=== PATIENT | male | born 1995 | race American Indian/Alaskan Native ===

== ENCOUNTER 2020-06-01 23:28 | Emergency (ER) | payer SELFPAY ==
[2020-06-01 23:55] VITALS: BP 115/73
[2020-06-02 00:18] LABS: Basophils % (Auto) 0.2 % (0.0-1.8); Eosinophils % (Auto) 0.3 % (0.0-4.3); Hematocrit 51.6 % (35.5-45.6); Hemoglobin 17.1 gm/dl (11.8-15.2); Lymphocytes # (Auto) 2.3 K/mm3 (1.2-5.4); Lymphocytes % (Auto) 21.6 % (13.4-35.0); Mean Corpuscular HGB Conc 33 % (32-34); Mean Corpuscular Volume 87 fl (84-94); Monocytes % (Auto) 9.5 % (0.0-7.3); Platelet Count 353 K/mm3 (140-440); Red Blood Count 5.93 M/mm3 (3.65-5.03); Red Cell Distribution Width 13.7 % (13.2-15.2)
[2020-06-02 00:35] LABS: Alanine Aminotransferase 20 units/L (7-56); Albumin 5.3 g/dL (3.9-5); BUN/Creatinine Ratio 18; Blood Urea Nitrogen 18 mg/dL (9-20); Calcium 10.1 mg/dL (8.4-10.2); Hemolysis Index 12
--- NOTE | 2020-06-02 00:40 | XRay Report ---
CHEST 1 VIEW 12:32 AM INDICATION / CLINICAL INFORMATION: Chest Pain. COMPARISON: None available. FINDINGS: SUPPORT DEVICES: None. HEART / MEDIASTINUM: The heart size and pulmonary vasculature are normal. The aorta is normal in lucas richard. LUNGS / PLEURA: No significant pulmonary or pleural abnormality. No pneumothorax. ADDITIONAL FINDINGS: No significant additional findings. IMPRESSION: No acute findings. Signer Name: Kervin Rai MD Signed: 06/02/2020 12:36 AM Workstation Name: [id number]
[2020-06-02 03:06] LABS: Bilirubin,Urine NEG (Negative); Blood,Urine SM (Negative); Color,Urine Amber (Yellow); Mucus,Urine 3+ /HPF
[2020-06-02] MEDS ORDERED: FAMOTIDINE 20 MG/2 ML INJ IV ONE (04:35)
[2020-06-02] MEDS ORDERED: AZITHROMYCIN 250 MG TAB PO ONE (04:35)
[2020-06-02] MEDS ORDERED: cefTRIAXone/NS 1 GM/50 ML 1 GM/50 ML BAG IV ONE (04:35)
[2020-06-02] MEDS ORDERED: KETOROLAC 30 MG/1 ML INJ IV ONE (04:35)
[2020-06-02] MEDS ORDERED: SODIUM CHLORIDE 0.9% 1000 ML 1,000 ML IV ONE (04:35)
[2020-06-02] MEDS ORDERED: ONDANSETRON 4 MG/2 ML INJ IV ONE (04:35)
--- NOTE | 2020-06-02 05:57 | Emergency Department Report ---
ED General Adult HPI - General Chief complaint: Chest Pain Stated complaint: POSS ALCOHOL POISONING Source: patient Mode of arrival: Ambulatory Limitations: No Limitations - History of Present Illness Initial comments: Patient is a 24-year-old -[place] male with no past medical history who presents to the ED with complaint of acute onset persistent diffuse body aches and pains, intractable nausea and vomiting, pleuritic chest pain, dysuria, low back pain and lack of appetite for the last 2 days. Patient states that about 4 days ago he drank a lot of alcohol but the symptoms did not start until the next day. Patient states that he initially thought that the symptoms were due to alcohol hangover effects but the symptoms got worse such that in the last 12 hours he has not been able to keep anything down or eat anything because of intractable nausea and vomiting. Patient denies dizziness, syncope, shortness of breath, fever, chills, cough, sore throat, headache, palpitations, hematuria, testicular pain, diarrhea, change in vision or hematemesis and hematochezia. MD Complaint: nausea, vomiting, chest pain, diffuse body aches; dysuria -: Sudden, days(s) (2) Location: chest, abdomen Radiation: non-radiation Severity scale (0 -10): 7 Quality: aching, sharp Consistency: constant Improves with: none Worsens with: none Associated Symptoms: denies other symptoms, chest pain (Pleuritic), headaches, loss of appetite, malaise, nausea/vomiting. denies: confusion, cough, diaphoresis, fever/chills, rash, seizure, shortness of breath, syncope, weakness, other Treatments Prior to Arrival: none - Related Data Previous Rx's Medication Instructions Recorded Last Taken Type Doxycycline Hyclate 100 mg PO Q12H #20 tablet. 06/02/20 Unknown Rx Famotidine [Pepcid] 20 mg PO Q12H #30 tablet 06/02/20 Unknown Rx Ibuprofen [Motrin] 600 mg PO Q8H PRN #24 tablet 06/02/20 Unknown Rx Ondansetron [Zofran Odt] 4 mg PO Q6HR PRN #20 tab.rapdis 06/02/20 Unknown Rx cephALEXin [Keflex] 500 mg PO Q8HR #21 cap 06/02/20 Unknown Rx Allergies Allergy/AdvReac Type Severity Reaction Status Date / Time No Known Allergies Allergy Verified 06/01/20 23:48 ED Review of Systems ROS: Stated complaint: POSS ALCOHOL POISONING Other details as noted in HPI Constitutional: malaise, weakness. denies: chills, fever Eyes: denies: eye pain, eye discharge, vision change ENT: denies: ear pain, throat pain Respiratory: denies: cough, shortness of breath, wheezing Cardiovascular: chest pain (Pleuritic). denies: palpitations Endocrine: no symptoms reported Gastrointestinal: nausea, vomiting. denies: abdominal pain, diarrhea Genitourinary: urgency, dysuria, frequency. denies: hematuria, testicular pain, testicular mass Musculoskeletal: arthralgia, myalgia. denies: back pain, joint swelling Skin: denies: rash, lesions Neurological: headache. denies: weakness, paresthesias Psychiatric: denies: anxiety, depression Hematological/Lymphatic: denies: easy bleeding, easy bruising ED Past Medical Hx - Past Medical History Previous Medical History?: No - Surgical History Past Surgical History?: No - Social History Smoking Status: Never Smoker Substance Use Type: Alcohol, Marijuana - Medications Home Medications: Home Medications Medication Instructions Recorded Confirmed Last Taken Type Doxycycline Hyclate 100 mg PO Q12H #20 tablet. 06/02/20 Unknown Rx Famotidine [Pepcid] 20 mg PO Q12H #30 tablet 06/02/20 Unknown Rx Ibuprofen [Motrin] 600 mg PO Q8H PRN #24 tablet 06/02/20 Unknown Rx Ondansetron [Zofran Odt] 4 mg PO Q6HR PRN #20 tab.rapdis 06/02/20 Unknown Rx cephALEXin [Keflex] 500 mg PO Q8HR #21 cap 06/02/20 Unknown Rx ED Physical Exam - General Limitations: No Limitations General appearance: alert, in no apparent distress - Head Head exam: Present: atraumatic, normocephalic, normal inspection - Eye Eye exam: Present: normal appearance, PERRL, EOMI Pupils: Present: normal accommodation - ENT ENT exam: Present: normal exam, normal orophraynx, mucous membranes moist, TM's normal bilaterally, normal external ear exam - Neck Neck exam: Present: normal inspection, full ROM. Absent: tenderness - Respiratory Respiratory exam: Present: normal lung sounds bilaterally. Absent: respiratory distress, wheezes, rales, rhonchi, stridor, chest wall tenderness - Cardiovascular Cardiovascular Exam: Present: regular rate, normal rhythm, normal heart sounds. Absent: systolic murmur, diastolic murmur, rubs, gallop - GI/Abdominal GI/Abdominal exam: Present: soft, normal bowel sounds. Absent: distended, tenderness, guarding, hyperactive bowel sounds, hypoactive bowel sounds, mass - Extremities Exam Extremities exam: Present: normal inspection, full ROM, normal capillary refill - Back Exam Back exam: Present: normal inspection, full ROM. Absent: tenderness, CVA tenderness (R), muscle spasm, paraspinal tenderness, vertebral tenderness - Neurological Exam Neurological exam: Present: alert, oriented X3, CN II-XII intact, normal gait, reflexes normal - Psychiatric Psychiatric exam: Present: normal affect, normal mood - Skin Skin exam: Present: warm, dry, intact, normal color. Absent: rash ED Course Vital Signs 06/01/20 23:44 Temperature 99.1 F Pulse Rate 62 Respiratory 16 Rate Blood Pressure 115/73 O2 Sat by Pulse 96 Oximetry ED Medical Decision Making - Lab Data Result diagrams: 06/01/20 23:56 06/01/20 23:56 - Radiology Data Radiology results: report reviewed, image reviewed Findings [facility] [address] [place] [address] XRay Report Signed Patient: RAND LANDERS MR#: [id number] : 1995 Acct:[id number] Age/Sex: 24 / M ADM Date: 06/01/20 Loc: ED Attending Dr: Ordering Physician: ED MD ANGELA Date of Service: 06/01/20 Procedure(s): XR chest 1V ap Accession Number(s): [id number] cc: ED MD ANGELA Fluoro Time In Minutes: CHEST 1 VIEW 12:32 AM INDICATION / CLINICAL INFORMATION: Chest Pain. COMPARISON: None available. FINDINGS: SUPPORT DEVICES: None. HEART / MEDIASTINUM: The heart size and pulmonary vasculature are normal. The aorta is normal in caliber. LUNGS / PLEURA: No significant pulmonary or pleural abnormality. No pneumothorax. ADDITIONAL FINDINGS: No significant additional findings. IMPRESSION: No acute findings. Signer Name: Kervin Rai MD Signed: 06/02/2020 12:36 AM Workstation Name: [id number] Transcribed By: RT Dictated By: Kervin Rai MD Electronically Authenticated By: Kervin Rai MD Signed Date/Time: 06/02/2035 DD/ TD/TT: - Medical Decision Making This is a 24-year-old -[place] male with no past medical history who presents to the ED with complaint of acute onset persistent diffuse body aches and pains, intractable nausea and vomiting, pleuritic chest pain, dysuria, low back pain and lack of appetite for the last 2 days. Patient states that about 4 days ago he drank a lot of alcohol but the symptoms did not start until the next day. Patient states that he initially thought that the symptoms were due to alcohol hangover effects but the symptoms got worse such that in the last 12 hours he has not been able to keep anything down or eat anything because of intractable nausea and vomiting. In the ED, patient is alert and oriented x3 and is not in distress. Patient was treated initially in the ED for pain, for nausea and vomiting and also given normal saline 1 L IV fluids bolus, also treated with antacids. Lab test results were reviewed and are all nonactionable except for mild hyponatremia 135 mmol/L, mild hypokalemia of 3.4 mmol/L and mild hypochloremia of 93 mmol/L. Urinalysis showed significant urinary tract infection characterized by moderate leukocyte esterase and >101 WBCs with budding yeasts. Patient was empirically treated in the ED also for suspected u rinary tract infection versus STD given the fact that the patient had admitted to having unprotected sexual intercourse. Chlamydia and gonorrhea tests were also sent and are pending at the time of patient disposition. Chest x-ray shows no acute cardiopulmonary abnormalities or pneumonitis. On reevaluation, patient felt better, was able to keep anything down in the ED after being treated for nausea and vomiting. Patient was discharged home on antiemetics, antibiotics, antacids and pain medications. Patient was advised to drink plenty of fluids and take medications and follow-up with his primary care physician in 3 to 5 days for reevaluation. Patient was also advised to follow-up with the [facility] department for further STD testing including HIV. Patient was otherwise advised to return to the ED immediately if symptoms get worse. - Differential Diagnosis Dehydration; UTI; Pneumonia; Alcoholic gastritis; STD; Gastroenteritis Critical care attestation.: If time is entered above; I have spent that time in minutes in the direct care of this critically ill patient, excluding procedure time. ED Disposition Clinical Impression: Nausea and vomiting in adult patient, Viral gastroenteritis, Acute urinary tract infection, STD (sexually transmitted disease) GERD (gastroesophageal reflux disease) Qualifiers: Esophagitis presence: without esophagitis Qualified Code(s): K21.9 - Gastro- esophageal reflux disease without esophagitis Disposition: TO HOME OR SELFCARE Is pt being admited?: No Does the pt Need Aspirin: No Condition: Stable Instructions: Gastroenteritis (ED), Acute Nausea and Vomiting (ED), Urinary Tract Infection in Men (ED), Sexually Transmitted Diseases (ED) Additional Instructions: Take medications with food, drink plenty of fluids and follow-up with your primary care physician in 5 to 7 days for reevaluation. Consider follow-up also with a [facility] department for further STD testing including HIV. Consider alcohol abuse cessation. Return to the ED immediately if symptoms get worse. Prescriptions: Doxycycline Hyclate 100 mg PO Q12H #20 tablet. cephALEXin [Keflex] 500 mg PO Q8HR #21 cap Ibuprofen [Motrin] 600 mg PO Q8H PRN #24 tablet PRN Reason: Pain Famotidine [Pepcid] 20 mg PO Q12H #30 tablet Ondansetron [Zofran Odt] 4 mg PO Q6HR PRN #20 tab.rapdis PRN Reason: Nausea Referrals: [facility] [Provider Group] - 3-5 Days [facility] [Outside] - 3-5 Days Time of Disposition: 06:08 Print Language: UZBEK
== END 2020-06-02 07:46 | disposition home or self-care (01) ==
LOC: ED 23:28
DX: K21.9 Gastro-esophageal reflux disease without esophagitis (principal); A08.4 Viral intestinal infection, unspecified; N39.0 Urinary tract infection, site not specified; A64 Unspecified sexually transmitted disease; F12.10 Cannabis abuse, uncomplicated
CPT/HCPCS: 36415; 71045; 80053; 81001; 83690; 84484; 85025; 87591; 93005; 96365; 96375; 99284; J0696; J1885; J2405; J7030

== ENCOUNTER 2020-11-07 06:16 | Emergency (ER) | payer SELFPAY ==
[2020-11-07 06:39] VITALS: BP 129/86
[2020-11-07 08:03] LABS: Basophils % (Auto) 0.3 % (0.0-1.8); Eosinophils % (Auto) 0.5 % (0.0-4.3); Hematocrit 50.4 % (35.5-45.6); Hemoglobin 16.8 gm/dl (11.8-15.2); Lymphocytes % (Auto) 20.4 % (13.4-35.0); Mean Corpuscular HGB Conc 33 % (32-34); Mean Corpuscular Volume 86 fl (84-94); Monocytes # (Auto) 0.9 K/mm3 (0.0-0.8); Monocytes % (Auto) 8.8 % (0.0-7.3); Platelet Count 305 K/mm3 (140-440); Red Blood Count 5.85 M/mm3 (3.65-5.03); Red Cell Distribution Width 13.9 % (13.2-15.2)
[2020-11-07 08:17] LABS: Alanine Aminotransferase 28 units/L (7-56); BUN/Creatinine Ratio 15; Blood Urea Nitrogen 15 mg/dL (9-20); Calcium 10.4 mg/dL (8.4-10.2); Hemolysis Index 24
[2020-11-07] MEDS ORDERED: SODIUM CHLORIDE 0.9% 1000 ML 1,000 ML IV ONE (09:54)
[2020-11-07] MEDS ORDERED: ONDANSETRON 4 MG/2 ML INJ IV ONE (09:54)
[2020-11-07] MEDS ORDERED: ALUM-MAG HYDROXIDE-SIMETHICONE 200-200-20MG/5ML ORAL LIQD 30 ML PO ONE (09:54)
--- NOTE | 2020-11-07 11:12 | Emergency Department Report ---
<GUYJOSUE - Last Filed: 11/07/20 20:16> ED Abdominal Pain HPI - General Chief Complaint: Abdominal Pain Stated Complaint: CHEST PAIN Time Seen by Provider: 11/07/20 09:53 Source: patient Mode of arrival: Ambulatory Limitations: No Limitations - History of Present Illness Initial Comments: This is a 25-year-old male reports a history of vomiting x2 days patient states it was after he drank beer and mixed alcohol drink that was given to him by a friend. He also reports loose stools x2 days he last vomited this morning. Patient reports chest pain with vomiting he states that taking a shower relieves his chest pain and the chest pain is relieved by vomiting. he reports a similar history of vomiting but has not done any follow-up he denies any other past medical history. He denies cough flu like symptoms no body aches no chills MD Complaint: abdominal pain -: days(s) (2 days) Location: diffuse Migration to: no migration Severity scale (0 -10): 7 Quality: cramping Consistency: intermittent Improves With: vomiting Worsens With: eating Context: other (Symptoms started after ingesting alcohol 2 days ago) Associated Symptoms: nausea, vomiting, diarrhea. denies: fever, constipation, dysuria - Related Data Previous Rx's Medication Instructions Recorded Last Taken Type Doxycycline Hyclate 100 mg PO Q12H #20 tablet. 06/02/20 Unknown Rx Famotidine [Pepcid] 20 mg PO Q12H #30 tablet 06/02/20 Unknown Rx Ibuprofen [Motrin] 600 mg PO Q8H PRN #24 tablet 06/02/20 Unknown Rx Ondansetron [Zofran Odt] 4 mg PO Q6HR PRN #20 tab.rapdis 06/02/20 Unknown Rx cephALEXin [Keflex] 500 mg PO Q8HR #21 cap 06/02/20 Unknown Rx Ciprofloxacin HCl [Ciprofloxacin 500 mg PO Q12HR 7 Days #14 tab 11/07/20 Unknown Rx TAB] Esomeprazole Magnesium [NexIUM] 40 mg PO QDAY #20 capsule. 11/07/20 Unknown Rx Allergies Allergy/AdvReac Type Severity Reaction Status Date / Time No Known Allergies Allergy Verified 06/01/20 23:48 ED Review of Systems Comment: All other systems reviewed and negative Constitutional: denies: chills Eyes: denies: eye pain ENT: denies: ear pain, dental pain Cardiovascular: chest pain. denies: palpitations Endocrine: no symptoms reported Gastrointestinal: abdominal pain, nausea, vomiting, diarrhea. denies: constipation, hematemesis Genitourinary: denies: urgency, dysuria Musculoskeletal: denies: back pain Neurological: denies: headache, numbness, paresthesias Psychiatric: denies: anxiety, depression ED Past Medical Hx - Past Medical History Previous Medical History?: Yes Hx GERD: Yes - Surgical History Past Surgical History?: No - Social History Smoking Status: Never Smoker Substance Use Type: None - Medications Home Medications: Home Medications Medication Instructions Recorded Confirmed Last Taken Type Doxycycline Hyclate 100 mg PO Q12H #20 tablet. 06/02/20 Unknown Rx Famotidine [Pepcid] 20 mg PO Q12H #30 tablet 06/02/20 Unknown Rx Ibuprofen [Motrin] 600 mg PO Q8H PRN #24 tablet 06/02/20 Unknown Rx Ondansetron [Zofran Odt] 4 mg PO Q6HR PRN #20 tab.rapdis 06/02/20 Unknown Rx cephALEXin [Keflex] 500 mg PO Q8HR #21 cap 06/02/20 Unknown Rx Ciprofloxacin HCl [Ciprofloxacin 500 mg PO Q12HR 7 Days #14 tab 11/07/20 Unknown Rx TAB] Esomeprazole Magnesium [NexIUM] 40 mg PO QDAY #20 capsule. 11/07/20 Unknown Rx ED Physical Exam - General Limitations: No Limitations General appearance: alert, in no apparent distress - Head Head exam: Present: atraumatic - Eye Eye exam: Present: normal appearance - ENT ENT exam: Present: normal exam - Neck Neck exam: Present: normal inspection, full ROM - Respiratory Respiratory exam: Present: normal lung sounds bilaterally - Cardiovascular Cardiovascular Exam: Present: regular rate, normal heart sounds - GI/Abdominal GI/Abdominal exam: Present: soft, normal bowel sounds. Absent: distended, tenderness, guarding, rebound, rigid - Rectal Rectal exam: Absent: deferred - Extremities Exam Extremities exam: Present: normal inspection - Back Exam Back exam: Present: normal inspection - Neurological Exam Neurological exam: Present: alert, oriented X3 - Psychiatric Psychiatric exam: Present: normal affect - Skin Skin exam: Present: warm, dry, intact, normal color ED Course - Reevaluation(s) Reevaluation #1: 11/07/20 13:17 Patient doing well and no pain. He has not vomited while in the emergency department states he is doing well and ready to go home I discussed all findings with patient he verbalizes understanding and the importance of compliance with taking antibiotic for urinary tract infection ED Medical Decision Making - Lab Data Result diagrams: 11/07/20 06:58 11/07/20 06:58 - Medical Decision Making 25-year-old male reports to the emergency room with abdominal pain nausea vomiting and diarrhea from x3 days after drinking a few beers and a mixed drink. His chest pain was relieved with vomiting and with taking a shower. He currently does not have chest pain. patient hydrated with 1 L of fluids. Labs revealed potassium of 3.3 otherwise no other significant abnormalities patient given 1 dose of potassium 20 M EQ. Urinalysis shows elevated WBCs. I treated the patient with Cipro for UTI. Discussed with patient the need to be checked for possible STD he states he is has no penile discharge or penile discomfort or any urinary symptoms. patient plan to follow-up with his PCP or local health department for STD screening - Differential Diagnosis Gastritis viral gastroenteritis UTI Critical Care Time: No ED Disposition Clinical Impression: Abdominal pain in male Disposition: DC-01 TO HOME OR SELFCARE Is pt being admited?: No Does the pt Need Aspirin: No Condition: Stable Instructions: Gastritis, Adult, [id number], Urinary Tract Infection, Adult, [id number], Abdominal Pain, Adult, [id number] Additional Instructions: Rest increase hydration. Drink at least 6 to 8 glasses of water per day. Do not drink alcohol. You have a urinary tract infection. In which she will be treated with antibiotic. Please follow-up with your primary care doctor or your local health department to be evaluated for sexually transmitted disease. Return to the emergency room with any worsening abdominal pain inability to keep food down inability to urinate Prescriptions: Ciprofloxacin HCl [Ciprofloxacin TAB] 500 mg PO Q12HR 7 Days #14 tab Esomeprazole Magnesium [NexIUM] 40 mg PO QDAY #20 capsule. Referrals: JAMIA BAINS MD [Primary Care Provider] - 3-5 Days SHAVON REGAN MD [Staff Physician] - 3-5 Days Time of Disposition: 13:13 <CHRIS SANTOS - Last Filed: 11/08/20 16:52> ED Review of Systems ROS: Stated complaint: CHEST PAIN Other details as noted in HPI ED Course Vital Signs 11/07/20 06:33 Temperature 98.7 F Pulse Rate 61 Respiratory 16 Rate Blood Pressure 129/86 O2 Sat by Pulse 99 Oximetry ED Medical Decision Making - Lab Data Result diagrams: 11/07/20 06:58 11/07/20 06:58 Critical care attestation.: If time is entered above; I have spent that time in minutes in the direct care of this critically ill patient, excluding procedure time. ED Disposition Is pt being admited?: No Does the pt Need Aspirin: No
[2020-11-07] MEDS ORDERED: POTASSIUM CHLORIDE ER 20 MEQ TAB PO ONE (11:17)
[2020-11-07 12:56] LABS: Bilirubin,Urine NEG (Negative); Blood,Urine NEG (Negative); Color,Urine Yellow (Yellow); Mucus,Urine 3+ /HPF
== END 2020-11-07 14:00 | disposition home or self-care (01) ==
LOC: ED 06:16
DX: R10.9 Unspecified abdominal pain (principal); K21.9 Gastro-esophageal reflux disease without esophagitis; Z79.899 Other long term (current) drug therapy
CPT/HCPCS: 36415; 80053; 81001; 83690; 85025; 87086; 93005; 96361; 96374; 99283; J2405; J7030